=== PATIENT | male | born 1990 ===

== ENCOUNTER 2019-06-17 18:49 | Emergency (ER) | payer BC ==
[2019-06-17 18:57] VITALS: BP 124/78
--- NOTE | 2019-06-17 19:03 | UC ---
Complaint Male HPI - HPI Summary HPI Summary: 28-year-old male presenting "burning with urination" 9 days. Patient states he was seen at [facility] on 06/[facility]/19 and received testing for gonorrhea , chlamydia, Trichomonas, and urine dip for infection. Patient states he received a call yesterday that "everything was negative." Patient states he did receive the 1 time dose of ceftriaxone and azithromycin for treatment of possible gonorrhea and chlamydia. Patient denies any known exposures to STDs. Denies penile discharge. Denies hematuria. Denies any lesions or skin changes. Denies malodorous urine. States burning sensation is "mostly at the tip of the penis." Notes pain occurs with ejaculation as well. Denies testicular pain. States he "thinks his lymph nodes seem bigger." Denies flank pain. - History of Current Complaint Stated Complaint: URINARY COMPLAINT Hx Obtained From: Patient Pain Intensity: 0 - Allergies/Home Medications Allergies/Adverse Reactions: Allergies Allergy/AdvReac Type Severity Reaction Status Date / Time No Known Allergies Allergy Verified 06/17/19 18:58 PMH/Surg Hx/FS Hx/Imm Hx - Surgical History Surgical History: None - Family History Known Family History: Positive: Non-Contributory - Social History Alcohol Use: Occasionally Substance Use Type: None Smoking Status (MU): Never Smoked Tobacco Review of Systems All Other Systems Reviewed And Are Negative: Yes Constitutional: Positive: Negative. Negative: Fever, Chills Respiratory: Positive: Negative Cardiovascular: Positive: Negative Gastrointestinal: Positive: Negative. Negative: Abdominal Pain, Vomiting, Nausea Genitourinary: Positive: Dysuria, Vaginal/Penile Burning. Negative: Hematuria, Frequency, Urgency, Vaginal/Penile Itching, Vaginal/Penile Discharge, Ulceration /Lesion Musculoskeletal: Positive: Negative Neurological: Positive: Negative Physical Exam - Summary Physical Exam Summary: Vital Signs Reviewed: Yes A+Ox3, no distress Eyes: Conjunctiva Clear ENT: Hearing grossly normal Neck: supple Respiratory: Positive: No respiratory distress, No accessory muscle use Cardiovascular: RRR nl s1, s2 no m/r CBT <2 sec Abd: soft + BS nt/nd no guarding, no distension, no CVA tenderness, no significant inguinal lymphadenopathy appreciated Musculoskeletal Exam: MENDOZA x 4 without difficulty Neurological: Positive: Alert Psychological: Positive: age appropriate behavior Vital Signs: Initial Vital Signs Temp 99.1 F 06/17/19 18:53 Pulse 72 06/17/19 18:53 Resp 18 06/17/19 18:53 BP 124/78 06/17/19 18:53 Pulse Ox 99 06/17/19 18:53 Lab Results 06/17/19 Range/Units 19:08 POC Urine Color Yellow POC Urine Clarity Clear POC Urine pH 7.0 (5-9) POC Ur Specif [place] 1.025 (1.010-1.030) POC Urine Protein Negative (Negative) POC Ur Glucose (UA) Negative (Negative) POC Urine Ketones Negative (Negative) POC Urine Blood Negative (Negative) POC Urine Nitrite Negative (Negative) POC Urine Bilirubin Negative (Negative) POC Urine Urobilinogen 1.0 (Negative) POC U Leukocyte Esteras Negative (Negative) Complaint Male Course/Dx - Course Course Of Treatment: Patient UA negative. Sent urine for culture, GC, and trichomonas testing. Patient declined genital exam. I treated with pyridium for symptom relief and provided patient with primary care and urology referrals and instructed to follow up as soon as possible for further evaluation. Patient voiced understanding and agreed with plan. - Differential Dx/Diagnosis Provider Diagnosis: Dysuria Discharge ED - Sign-Out/Discharge Documenting (check all that apply): Patient Departure All imaging exams completed and their final reports reviewed: No Studies - Discharge Plan Condition: Stable Disposition: HOME Prescriptions: Phenazopyridine TAB* [Pyridium 100 mg TAB*] 100 mg PO TID PRN #15 tab PRN Reason: Spasms - Bladder Patient Education Materials: Dysuria (ED) Referrals: [facility] [facility] [place] [facility] [place]] Andrei Verdin MD [Medical Doctor] - Additional Instructions: Your urine did not show sign of infection today. It was sent for testing and you will be notified only with any positive results that warrant treatment. You may take pyridium as needed for symptom relief. Follow up with one of the referrals listed below for further evaluation of your symptoms. - Billing Disposition and Condition Condition: STABLE Disposition: Home - Attestation Statements Provider Attestation: I was available for consult. This patient was seen by the [facility]. The patient was not presented to, seen by, or examined by me. -Jake
[2019-06-19 13:07] LABS: Chlamydia trachomatis NAA Negative (Negative); Neisseria gonorrhoeae (GC) NAA Negative (Negative)
[2019-06-19 20:18] LABS: Trichomonas vag Misc RNA Male Negative (Negative); Trichomonas vaginalis SOURCE: Urine (Male Patient)
== END 2019-06-17 19:45 | disposition home or self-care (01) ==
LOC: UCEAST 18:49
DX: R30.0 Dysuria (principal)
CPT/HCPCS: 81003; 87086; 87491; 87591; 87661; 99202; G0463